=== PATIENT | male | born 1990 | race Caucasian/White ===

== ENCOUNTER 2022-08-21 09:38 | Inpatient (IN) | payer OTHER ==
[~2022-08-21] VITALS: Ht 180.3 cm; Wt 143.0 kg
--- NOTE | 2022-08-21 09:54 | NUR ---
DR CHAUHAN AT BEDSIDE FOR EVAL
--- NOTE | 2022-08-21 10:00 | NUR ---
RAD CALLED FOR XRAY
--- NOTE | 2022-08-21 10:13 | NUR ---
EMT AT BED SIDE FOR EKG
--- NOTE | 2022-08-21 10:17 | NUR ---
L HAND 20G ASSEMBLER FILTERS FLUSH AND S/L
--- NOTE | 2022-08-21 10:18 | NUR ---
COVID SWAB COLLECTED AND SENT TO LAB
--- NOTE | 2022-08-21 10:21 | NUR ---
LONG WINDER TENDER AT BEDSIDE FOR XRAY
[2022-08-21] MEDS ORDERED: CLIN300C12 PO (10:31)
[2022-08-21 10:37] LABS: BASOPHILS % (AUTO) 0.2 % (0.0-2.0); EOSINOPHILS % (AUTO) 1.5 % (0.0-6.0); HEMATOCRIT 42 % (39-51); LYMPHOCYTES # (AUTO) 2.6 K/uL (0.8-4.8); LYMPHOCYTES % (AUTO) 15.6 % (20.0-44.0); MEAN CORPUSCULAR HGB CONC 33 g/dl (31.0-36.0); MEAN CORPUSCULAR VOLUME 92 fL (80-96); MONOCYTES # (AUTO) 0.7 K/uL (0.1-1.30); MONOCYTES % (AUTO) 4.3 % (2.0-12.0); NEUTROPHILS # (AUTO) 12.8 K/uL (1.8-8.9); NEUTROPHILS % (AUTO) 78.4 % (43.0-81.0); PLATELET COUNT (AUTO) 305 K/uL (150-450); RED BLOOD CELL COUNT(AUTO) 4.63 MIL/uL (4.5-6.0); WHITE BLOOD COUNT (AUTO) 16.4 K/uL (4.3-11.0)
[2022-08-21 10:47] LABS: CALCIUM, SERUM 8.7 mg/dL (8.5-10.1); POTASSIUM 3.9 mmol/L (3.5-5.1)
[2022-08-21] MEDS ORDERED: MORPHINE SULFATE INJ 2 MG/ML DISP.SYRIN IV ONE (11:00)
[2022-08-21] MEDS ORDERED: ONDANSETRON HCL/PF 4 MG/2 ML VIAL IV ONE (11:00)
[2022-08-21] MEDS ORDERED: ONDANSETRON HCL/PF 4 MG/2 ML VIAL ONE (11:06)
[2022-08-21] MEDS ORDERED: MORPHINE SULFATE INJ 2 MG/ML DISP.SYRIN ONE ×2 (11:06→11:19)
--- NOTE | 2022-08-21 12:07 | NUR ---
DR. CHAUHAN CONSULTED WITH DR. CARDENAS
[2022-08-21] MEDS ORDERED: MAG HYDROX/AL HYDROX/SIMETH 30 ML UDC PO PRN (14:00)
[2022-08-21] MEDS ORDERED: MORPHINE SULFATE INJ 2 MG/ML DISP.SYRIN IV PRN ×2 (14:00→19:00)
[2022-08-21] MEDS ORDERED: Z GUARD REMEDY 4 OZ OINT TP PRN (14:00)
[2022-08-21] MEDS ORDERED: MAGNESIUM HYDROXIDE 30 ML UDC PO PRN (14:00)
[2022-08-21] MEDS ORDERED: ACETAMINOPHEN 325 MG TABLET PO PRN (14:00)
[2022-08-21] MEDS ORDERED: ONDANSETRON HCL/PF 4 MG/2 ML VIAL IVP PRN (14:00)
--- NOTE | 2022-08-21 14:00 | NUR ---
room [id number]
--- NOTE | 2022-08-21 14:25 | NUR ---
León montaño in [facility] - 08/21/22 at 1426 by KAITLIN REPORT GIVEN TO GUME SWEENEY SOPHY
--- NOTE | 2022-08-21 14:26 | NUR ---
REPORT GIVEN TO GUME FOR SOPHY
--- NOTE | 2022-08-21 14:29 | NUR ---
PT MOVED TO 3W VIA [facility]
--- NOTE | 2022-08-21 14:45 | NUR ---
MS RN NOTE ADMITTED IS A 31 YEAR OLD MALE, TRANSPORTED VIA GURNEY FROM ER ACCOMPANIED BY NURSE. PATIENT TRANSFERRED TO BED AND COMFORT MEASURES PROVIDED. PATIENT IS ALERT AND ORIENTED X4. PATIENT IS ON ROOM AIR WITH NO APPARENT SIGNS OF RESPIRATORY DISTRESS. WITH IV ACCESS ON THE LEFT HAND G20 ON SALINE LOCK, PATENT AND INTACT. WITH CAST ON THE LEFT LOWER EXTREMITY AND WRAPPED WITH ELASTIC BANDAGE, DRY AND INTACT WITH NO CIRCULATORY, SENSORY OR MOTOR DEFICIT NOTED ON THE LEFT TOES. COMFORT MEASURES PROVIDED. HOSPITALIST RAJNI AWARE OF PATIENT ADMISSION. PATIENT HEALTH TEACHING DONE REGARDING ADMISSION AND ADMISSION ORDERS. VERBALIZED UNDERSTANDING AND APPRECIATION. SAFETY MEASURES ENSURED WITH BED ON LOWEST LOCKED POSITION, SIDERAILS RAISED AND CALL LIGHT WITHIN REACH AT ALL TIMES. IN STABLE CONDITION. WILL CONTINUE WITH PLAN OF CARE.
[2022-08-21] MEDS: HYDROCODONE/APAP 5/325MG TABLET PO PRN ×2 (15:10→23:00)
[2022-08-21 15:48] VITALS: BP 161/94
--- NOTE | 2022-08-21 18:35 | NUR ---
MS RN CLOSING NOTE MS RN NOTE PATIENT IN BED, WITH FAMILY AT BEDSIDE. PATIENT IS ALERT AND ORIENTED X4. PATIENT IS ON ROOM AIR WITH NO APPARENT SIGNS OF RESPIRATORY DISTRESS OR SOB. WITH IV ACCESS ON THE LEFT HAND G20 ON SALINE LOCK, PATENT AND INTACT. WITH CAST ON THE LEFT LOWER EXTREMITY AND WRAPPED WITH ELASTIC BANDAGE, DRY AND INTACT WITH NO CIRCULATORY, SENSORY OR MOTOR DEFICIT NOTED ON THE LEFT TOES. COMFORT MEASURES PROVIDED. SAFETY MEASURES ENSURED WITH BED IN LOWEST LOCKED POSITION, SIDERAILS RAISED X2 AND CALL LIGHT WITHIN REACH. ALL NEEDS MET AT THIS TIME. WILL ENDSORSE SOPHY TO NIGHTSHIFT NURSE
--- NOTE | 2022-08-21 18:37 | NUR ---
RN NOTE PT COMPLAINING OF PERSISTENT PAIN REGARDLESS OF TAKING NORCO 5-325 AND 1MG MORPHINE. CONTACTED JOB LITHOGRAPHER WHO CHANGED DOSE OF MORPHINE TO 2MG PRN Q4HRS AND DILAUDID 1MG IVPX1. PATIENT HAS BEEN PUT ON CONTINUOUS PULSE OC AND TELE. WILL GIVE MEDS AND CONTINUE TO MONITOR.
[2022-08-21] MEDS ORDERED: HYDROMORPHONE 1 MG/1 ML DISP.SYRIN IV ONE (19:00)
--- NOTE | 2022-08-21 19:30 | NUR ---
CONTINUOUS TOWEL ROLLER OPENING NOTES - RECEIVED PATIENT AWAKE, BED IN SEMI-ODONNELL'S. FEMALE VISITOR ON BEDSIDE. A/O X4. BREATHING EVEN AND NON-LABORED ON ROOM AIR. NOT IN APPARENT DISTRESS. C/O SHARP LEFT LOWER LEG PAIN 10/10. ON TELE MONITOR READING SINUS RHYTHM AT 85 BPM. HAS LEFT HAND IV ACCESS #20G AND SALINE LOCKED. CANULA BENT AND ALMOST PULLED OUT. LEFT LOWER LEG OFFLOADED WITH PILLOW, FLORA BANDAGE DRY AND INTACT. SAFETY PRECAUTIONS IN PLACE: BED LOCKED AND IN LOW POSITION, SIDE RAILS UP X2, CALL LIGHT WITHIN REACH. WILL CONTINUE PLAN OF CARE.
[2022-08-21 20:00] VITALS: BP 156/99
--- NOTE | 2022-08-21 20:25 | NUR ---
RE-INSERTED IV ACCESS TO RIGHT HAND #20G. ADMINISTERED DILAUDID 1MG X1, TOLERATED WELL. WILL CONTINUE TO MONITOR.
--- NOTE | 2022-08-21 21:27 | NUR ---
REPORTED TO HOSPITALIST BENNETT BURNS NP THAT PATIENT'S RESPONSE TO DILAUDID 1MG IS MORE EFFECTIVE THAN MORPHINE. VERBALIZED HE WILL PUT IN THE ORDER.
[2022-08-21] MEDS ORDERED: HYDROMORPHONE 1 MG/1 ML DISP.SYRIN IV PRN (22:00)
[2022-08-21] MEDS: IV D5/0.45 NACL 1,000 ML IV PRN (22:46)
[2022-08-22] VITALS (13 sets, daily range): BP systolic 136–180; BP diastolic 74–115
--- NOTE | 2022-08-22 01:17 | NUR ---
BP 162/99 AND 167/106. LEFT LOWER LEG PAIN 04/20. PER PATIENT, DILAUDID 1MG HELPED FOR AT LEAST AN HOUR COMPARED TO 0.5 MG. NOTIFIED HOSPITALIST, AWAITING FOR RESPONSE. Addendum: 08/22/22 at 0139 by January NICK HOROWITZ ERON BURNS ORDERED TO CHANGE DILAUDID TO 1MG IV Q6H PRN. FOR NOW, GIVE DILAUDID 0.5 MG IV ONCE. NOTED AND CARRIED OUT.
[2022-08-22] MEDS ORDERED: HYDROMORPHONE INJ 2 MG/ML DISP.SYRIN IV PRN (02:00)
[2022-08-22] MEDS ORDERED: HYDROMORPHONE 1 MG/1 ML DISP.SYRIN IV ONE (02:00)
[2022-08-22] MEDS: HYDROCODONE/APAP 5/325MG TABLET PO PRN ×2 (03:33→21:55)
[2022-08-22 05:55] LABS: BASOPHILS % (AUTO) 0.3 % (0.0-2.0); HEMATOCRIT 40 % (39-51); HEMOGLOBIN 13.5 g/dL (13.5-17.5); LYMPHOCYTES # (AUTO) 3.2 K/uL (0.8-4.8); LYMPHOCYTES % (AUTO) 24.6 % (20.0-44.0); MEAN CORPUSCULAR HGB CONC 34 g/dl (31.0-36.0); MEAN CORPUSCULAR VOLUME 91 fL (80-96); MONOCYTES # (AUTO) 1.2 K/uL (0.1-1.30); MONOCYTES % (AUTO) 9.1 % (2.0-12.0); NEUTROPHILS # (AUTO) 8.5 K/uL (1.8-8.9); PLATELET COUNT (AUTO) 290 K/uL (150-450); RED BLOOD CELL COUNT(AUTO) 4.37 MIL/uL (4.5-6.0)
[2022-08-22 06:16] LABS: CALCIUM, SERUM 8.7 mg/dL (8.5-10.1); MAGNESIUM 1.9 mg/dL (1.8-2.4); PHOSPHORUS 3.9 mg/dL (2.5-4.9); POTASSIUM 3.6 mmol/L (3.5-5.1)
[2022-08-22 06:28] LABS: THYROID STIMULATING HORMONE 1.502 uIU/mL (0.358-3.74)
--- NOTE | 2022-08-22 07:00 | NUR ---
OIL WELL DIRECTIONAL SURVEYOR CLOSING NOTES - PATIENT IN BED AWAKE, ABLE TO VERBALIZED NEEDS. NOT IN RESPIRATORY OR CARDIAC DISTRESS. AFEBRILE. PER PATIENT, PAIN IMPROVEMENT IS VERY MINIMAL. ON TELE MONITOR READING SINUS RHYTHM AT 80 BPM. HAS RIGHT HAND IV ACCESS #20G WITH D5 1/2NS RUNNING AT 75 ML/HR. INTACT, PATENT AND FLUSHING. ALL DUE MEDS GIVEN AND NEEDS ATTENDED. DISCUSSED PLAN OF CARE WITH PATIENT, VERBALIZED UNDERSTANDING. SAFETY PRECAUTIONS MAINTAINED. WILL ENDORSE TO NEXT SHIFT FOR CONTINUITY OF CARE.
--- NOTE | 2022-08-22 07:05 | NUR ---
SHADER AND TONER OPENING NOTES: RECEIVED PATIENT IN BED, AWAKE, ALERT AND ORIENTED X 4 AND ABLE TO MAKE NEEDS KNOWN. NO SOB OR CARDIAC DISTRESS NOTED, ON PAIN MANAGEMENT ORDERED. IV ACCESS ON R HAND GAUGE 20, PATENT, INTACT AND INFUSING D5 1/2 @75ML/HR. NOTED L LOWER LEG DRESSING PATENT AND INTACT AND KEPT IMMOBILIZED. SAFETY MEASURES MAINTAINED: BED LOCKED AND IN LOWEST POSITION. SIDE RAILS UP X 2. CALL LIGHT IN EASY REACH FOR HELP. WILL MONITOR PT ACCORDINGLY.
--- NOTE | 2022-08-22 07:06 | NUR ---
RN NOTES: ON ARMY MANAGER WITH CURRENT READING SINUS RHYTHM AT 78BPM
[2022-08-22] MEDS: PANTOPRAZOLE 40 MG VIAL IV SCH (08:39)
[2022-08-22] MEDS ORDERED: FENTANYL PF 100MCG/2ML AMPUL ONE ×3 (12:32→15:57)
--- NOTE | 2022-08-22 12:32 | NUR ---
RN NOTES: PATIENT IS ON 10/10 PAIN, FIRE CHIEF ALCON ADJUSTED DILAUDID 1MG IV ORDER TO Q5HRS. ORDERS NOTED AND CARRIED OUT.
[2022-08-22] MEDS ORDERED: MIDAZOLAM HCL 2 MG/2ML VIAL ONE (12:33)
[2022-08-22] MEDS ORDERED: ROCURONIUM BROMIDE 50 MG/5 ML ONE (12:33)
[2022-08-22] MEDS: HYDROMORPHONE 1 MG/1 ML DISP.SYRIN IV PRN ×2 (12:36→20:49)
[2022-08-22] MEDS ORDERED: HYDROGEN PEROXIDE 480 ML BOTTLE ONE (13:40)
[2022-08-22] MEDS ORDERED: BUPIVACAINE 0.5 % PF 150 MG/30 ML VIAL ONE (15:01)
[2022-08-22] MEDS ORDERED: ANESTHESIA TRAY IN PYXIS 1 EA TRAY MC ONE (16:19)
--- NOTE | 2022-08-22 16:50 | NUR ---
RN NOTES: S/P LEFT TIBIA ORIF. PT FROM SURGERY WAS TRANSPORTED VIA BED BY CARLOS MANUEL VARGAS AND CARLOS MANUEL SIMON. PT A/O X 4 AND SLEEPY BUT EASY TO AWAKEN WITH STIMULI. NO DISCOMFORT OF NOW. VS TAKEN 98.1,TEMP 102, O2 SAT 95% ON RA,RR 19. RECEIVED REPORT FROM CARLOS MANUEL VARGAS, TO RESUME DIET (REGULAR DIET), LEFT LEG NOTED WITH FLORA WRAP AND RIGHT LEG WITH SCD PUMP. ANCEF IV 1ST DOSE GIVEN. WEIGHT BEARING NWB ON LLE. PAIN MANAGEMENT ORDERED.SAFETY MEASURES MAINTAINED: BED LOCKED AND IN LOWEST POSITION, LOCKED. SIDE RAILS UP X2. WILL MONITOR ACCORDINGLY.
[2022-08-22 17:07] LABS: HEMOGLOBIN 13.4 g/dL (13.5-17.5)
[2022-08-22] MEDS ORDERED: HYDROCODONE/APAP 5/325MG TABLET PO PRN (17:30)
--- NOTE | 2022-08-22 17:50 | NUR ---
RN NOTES: PHARMACIST CALLED AND SAYING TO WATCH OUT FOR ANY ALLERGIC REACTION, PT HAD ANCEF 1GRAM IV IN SURGERY AND NO REPORTED ALLERGIC REACTION FROM RN. WILL ENDORSED TO RN FORENSIC RN TO WATCH ANY ALLERGIC REACTION WHILE INFUSING ANCEF IV ON 2100.
[2022-08-22] MEDS: IV D5/0.45 NACL 1,000 ML IV PRN (18:02)
--- NOTE | 2022-08-22 18:49 | NUR ---
CERAMICS ENGINEER CLOSING NOTES: RECEIVED PATIENT IN BED, AWAKE, ALERT AND ORIENTED X 4 AND ABLE TO MAKE NEEDS KNOWN. NO SOB OR CARDIAC DISTRESS NOTED,S/P LEFT TIBIA ORIF, ON PAIN MANAGEMENT ORDERED. IV ACCESS ON R HAND GAUGE 20, PATENT, INTACT AND INFUSING D5 1/2 @75ML/HR. NOTED L LOWER LEG SURGICAL DRESSING WITH FLORA WRAP PATENT AND INTACT NO UNUSUAL DISCHARGE. ON RIGHT LEG NOTED WITH SCD PUMP. SAFETY MEASURES MAINTAINED: BED LOCKED AND IN LOWEST POSITION. SIDE RAILS UP X 2. CALL LIGHT IN EASY REACH FOR HELP. WILL MONITOR PT ACCORDINGLY.ENDORSED TO DOWEL INSERTING MACHINE OPERATOR RN FOR CONTINUITY OF CARE.
--- NOTE | 2022-08-22 19:30 | NUR ---
ENVIRONMENTAL SERVICES DIRECTOR OPENING NOTES - RECEIVED PATIENT AWAKE IN HIGH ODONNELL'S. ON BEDSIDE. A/O X4. S/P LEFT TIBIA ORIF. BREATHING EVEN AND NON-LABORED ON ROOM AIR. NOT IN APPARENT DISTRESS. VERBALIZED TIGHT LEG PAIN 01/18, OFFLOADED AND ICE PACK PLACED OVER FLORA BANDAGE. ON TELE MONITOR READING SINUS TACHYCARDIA AT 118 BPM. HAS RIGHT HAND IV ACCESS #20G WITH D5 1/2NS RUNNING AT 75 ML/HR. SAFETY PRECAUTIONS IN PLACE: BED LOCKED AND IN LOW POSITION, SIDE RAILS UP X2, CALL LIGHT WITHIN REACH. WILL CONTINUE PLAN OF CARE.
[2022-08-22] MEDS: ANCEF 1 GM/50 ML D5W IV SCH ×2 (20:49)
[2022-08-22] MEDS: ENOXAPARIN SODIUM 40 MG/0.4 ML DISP.SYRIN SQ SCH (20:50)
--- NOTE | 2022-08-22 21:00 | NUR ---
PATIENT C/O 10/10 PAIN ON HIS LEFT LOWER EXTREMITY. ADMINISTERED PRN DILAUDID 1MG, TOLERATED WELL.
--- NOTE | 2022-08-22 21:51 | NUR ---
SPOKE W/ TIERNEY FR CARDINAL PX REGARDING DUPLICATE ORDERS OF NORCO 5-325 1 TAB AND NORCO 5-325 2 TABS. I ALREADY REJECTED THE DUPLICATE ORDERS TWICE BUT THEY ARE STILL ACTIVE AFTER PX REVIEW. TIERNEY SAID HE WILL D/C THE NEW ORDERS.
--- NOTE | 2022-08-22 22:10 | NUR ---
PATIENT VERBALIZED THAT ANESTHESIA IS WEARING OFF AND HE IS FEELING MORE PAIN NOW. GAVE PRN NORCO 5-325 X2 TABS PO.
[2022-08-23] VITALS: BP 128/87
[2022-08-23] MEDS: HYDROCODONE/APAP 5/325MG TABLET PO PRN ×5 (01:21→22:43)
[2022-08-23] MEDS: HYDROMORPHONE 1 MG/1 ML DISP.SYRIN IV PRN ×4 (02:25→19:56)
[2022-08-23 03:46] VITALS: BP 128/87
[2022-08-23 04:00] VITALS: BP 136/93
[2022-08-23] MEDS: ANCEF 1 GM/50 ML D5W IV SCH ×2 (04:10)
--- NOTE | 2022-08-23 06:05 | NUR ---
PATIENT C/O THROBBING LEFT LOWER EXTREMITY PAIN 05/20. ADMINISTERED PRN NORCO 5-325 MG X2 TABS. TOTAL OF 2275 MG APAP GIVEN FROM 08/22/22 0600 TO 08/23/22 0600.
[2022-08-23 06:46] LABS: BASOPHILS % (AUTO) 0.1 % (0.0-2.0); HEMATOCRIT 38 % (39-51); HEMOGLOBIN 13.1 g/dL (13.5-17.5); LYMPHOCYTES # (AUTO) 2.3 K/uL (0.8-4.8); MEAN CORPUSCULAR HGB CONC 34 g/dl (31.0-36.0); MEAN CORPUSCULAR VOLUME 91 fL (80-96); MONOCYTES # (AUTO) 1.7 K/uL (0.1-1.30); MONOCYTES % (AUTO) 8.3 % (2.0-12.0); NEUTROPHILS # (AUTO) 16.9 K/uL (1.8-8.9); NEUTROPHILS % (AUTO) 80.6 % (43.0-81.0); PLATELET COUNT (AUTO) 310 K/uL (150-450); RED BLOOD CELL COUNT(AUTO) 4.21 MIL/uL (4.5-6.0)
--- NOTE | 2022-08-23 06:48 | NUR ---
MEDICATION RECONCILIATION TECHNICIAN CLOSING NOTES - PATIENT IN BED, UNABLE TO SLEEP THROUGHOUT THE NIGHT D/T LEFT LEG PAIN. PAIN MANAGED PER MD ORDERS. NOT IN RESPIRATORY OR CARDIAC DISTRESS. AFEBRILE. ON TELE MONITOR READING SINUS RHYTHM AT 96 BPM. RIGHT HAND IV ACCESS #20G INTACT, PATENT AND FLUSHING. ALL DUE MEDS GIVEN AND NEEDS ATTENDED. SURGICAL DRESSING C/D/I. SAFETY PRECAUTIONS MAINTAINED. WILL ENDORSE TO NEXT SHIFT FOR CONTINUITY OF CARE.
--- NOTE | 2022-08-23 07:00 | NUR ---
CASH TELLER OPENING NOTES: RECEIVED PATIENT IN BED, ASLEEP EASILY AROUSED WITH STIMULI, ALERT AND ORIENTED X 4 AND ABLE TO MAKE NEEDS KNOWN. NO SOB OR CARDIAC DISTRESS NOTED,S/P LEFT TIBIA ORIF, ON PAIN MANAGEMENT ORDERED. IV ACCESS ON R HAND GAUGE 20, PATENT, INTACT AND INFUSING D5 1/2 @75ML/HR. NOTED L LOWER LEG SURGICAL DRESSING WITH FLORA WRAP PATENT AND INTACT NO UNUSUAL DISCHARGE. ON RIGHT LEG NOTED WITH SCD PUMP. SAFETY MEASURES MAINTAINED: BED LOCKED AND IN LOWEST POSITION. SIDE RAILS UP X 2. CALL LIGHT IN EASY REACH FOR HELP. WILL MONITOR PT ACCORDINGLY.
[2022-08-23 07:29] LABS: CALCIUM, SERUM 9.2 mg/dL (8.5-10.1); MAGNESIUM 2.2 mg/dL (1.8-2.4); PHOSPHORUS 3.1 mg/dL (2.5-4.9)
[2022-08-23] MEDS: PANTOPRAZOLE 40 MG VIAL IV SCH (08:08)
[2022-08-23 08:32] VITALS: BP 125/81
[2022-08-23] MEDS: IV D5/0.45 NACL 1,000 ML IV PRN ×2 (10:23→22:37)
[2022-08-23 16:14] VITALS: BP 135/87
--- NOTE | 2022-08-23 19:00 | NUR ---
GENERATOR TECHNICIAN CLOSING NOTES: RECEIVED PATIENT IN BED, AWAKE, ALERT AND ORIENTED X 4 AND ABLE TO MAKE NEEDS KNOWN. NO SOB OR CARDIAC DISTRESS NOTED,S/P LEFT TIBIA ORIF, ON PAIN MANAGEMENT ORDERED. IV ACCESS ON R HAND GAUGE 20, PATENT, INTACT AND INFUSING D5 1/2 @75ML/HR. NOTED L LOWER LEG SURGICAL DRESSING WITH FLORA WRAP PATENT AND INTACT NO UNUSUAL DISCHARGE. ON RIGHT LEG NOTED WITH SCD PUMP. SAFETY MEASURES MAINTAINED: BED LOCKED AND IN LOWEST POSITION. SIDE RAILS UP X 2. CALL LIGHT IN EASY REACH FOR HELP. WILL MONITOR PT ACCORDINGLY.ENDORSED TO STORE CUSTODIAN RN FOR CONTINUITY OF CARE.
--- NOTE | 2022-08-23 19:30 | NUR ---
TELE CLAY PREPARATION SUPERVISOR INITIAL NOTES RECEIVED REPORT FROM AM NURSE WHILE DOING OUR ROUNDS. SEEN PT IN BED ON SITTING POSITION AND EATING HIS FOOD FROM HOME. WITH IVF OF D51/2 NS AT 75ML/HR INFUSING AT THIS TIME ON HIS RIGHT HAND PATENT AND INTACT. DRESSING ON HIS LEFT LOWER LEG DRY AND INTACT. HE ALSO ON TELE SINUS RHYTHM PER MONITOR. FAMILY AT THE BEDSIDE AT THIS TIME. KEPT HIM WARM AND COMFORTABLE AT ALL TIMES. PLACE CALL LIGHT AT REACH. WILL CONTINUE MONITORING.
--- NOTE | 2022-08-23 19:56 | NUR ---
TELE PHARMACY INFORMATICIST NOTES PT COMPLAINT OF PAIN , 03/20 , PT STATED STARTED THE PAIN. VITAL SIGNS FF: BP 161/84, PULSE 91 RESP 20 AND TEMP 98.6. DILAUDID 1 MG ADMINISTERED BY ANEL/RN ADALGISA IVP ORDERED. WILL RE-ASSESS LATER , CONTINUE MONITORING. STILL AT THE BEDSIDE.
[2022-08-23 20:00] VITALS: BP 161/84
[2022-08-23] MEDS: ENOXAPARIN SODIUM 40 MG/0.4 ML DISP.SYRIN SQ SCH (21:07)
--- NOTE | 2022-08-23 22:43 | NUR ---
TELE PUBLIC STENOGRAPHER NOTES 2 NORCO TABLET GIVEN ORDERED PER PT REQUESTED FOR HIS PAIN 5/10 AND ICE PACK ALSO APPLIED TO AFFECTED AREA. WILL CONTINUE MONITORING. PLACE CALL LIGHT AT REACH.
[2022-08-24] VITALS: BP 148/98
[2022-08-24] MEDS: HYDROMORPHONE 1 MG/1 ML DISP.SYRIN IV PRN ×3 (02:15→13:20)
[2022-08-24 06:14] LABS: BASOPHILS % (AUTO) 0.3 % (0.0-2.0); EOSINOPHILS % (AUTO) 1.6 % (0.0-6.0); HEMATOCRIT 38 % (39-51); HEMOGLOBIN 12.4 g/dL (13.5-17.5); LYMPHOCYTES # (AUTO) 4.6 K/uL (0.8-4.8); LYMPHOCYTES % (AUTO) 29.9 % (20.0-44.0); MEAN CORPUSCULAR HGB CONC 33 g/dl (31.0-36.0); MEAN CORPUSCULAR VOLUME 92 fL (80-96); MONOCYTES # (AUTO) 1.1 K/uL (0.1-1.30); MONOCYTES % (AUTO) 7.4 % (2.0-12.0); NEUTROPHILS # (AUTO) 9.4 K/uL (1.8-8.9); NEUTROPHILS % (AUTO) 60.8 % (43.0-81.0); PLATELET COUNT (AUTO) 320 K/uL (150-450); RED BLOOD CELL COUNT(AUTO) 4.08 MIL/uL (4.5-6.0); WHITE BLOOD COUNT (AUTO) 15.5 K/uL (4.3-11.0)
[2022-08-24 06:19] LABS: CALCIUM, SERUM 8.8 mg/dL (8.5-10.1); CREATININE 0.8 mg/dL (0.6-1.3); MAGNESIUM 2.2 mg/dL (1.8-2.4); PHOSPHORUS 3.5 mg/dL (2.5-4.9); POTASSIUM 3.7 mmol/L (3.5-5.1)
[2022-08-24] MEDS: HYDROCODONE/APAP 5/325MG TABLET PO PRN ×2 (06:43→10:43)
--- NOTE | 2022-08-24 06:55 | NUR ---
TELE LOSS PREVENTION MANAGER CLOSING NOTES PT CALLED AND COMPLAINING OF PAIN AT THIS TIME. NORCO TABLET 5 MG GIVEN ORDERED AND ICE PACK ALSO APPLIED TO AFFECTED AREA. IVF D51/2 NS AT 75ML/HR INFUSING AT THIS TIME. TELE SINUS RHYTHM HEART RATE 91 PER MONITOR. KEPT HIM WARM AND COMFORTABLE AT ALL TIMES. WILL ENDORSE TO AM NURSE FOR CONTINUITY OF CARE. PLACE CALL LIGHT AT REACH.
--- NOTE | 2022-08-24 07:00 | NUR ---
AS400 OPERATOR OPENING NOTES: RECEIVED PATIENT IN BED, ASLEEP EASILY AROUSED WITH STIMULI, ALERT AND ORIENTED X 4 AND ABLE TO MAKE NEEDS KNOWN. NO SOB OR CARDIAC DISTRESS NOTED,S/P LEFT TIBIA ORIF, ON PAIN MANAGEMENT ORDERED. ON TITLE I TEACHER WITH CURRENT READING OF SINUS RHYTHM @78 BPM. IV ACCESS ON R HAND GAUGE 20, PATENT, INTACT AND INFUSING D5 1/2 @75ML/HR. NOTED L LOWER LEG SURGICAL DRESSING WITH FLORA WRAP PATENT AND INTACT NO UNUSUAL DISCHARGE. ON RIGHT LEG NOTED WITH SCD PUMP. SAFETY MEASURES MAINTAINED: BED LOCKED AND IN LOWEST POSITION. SIDE RAILS UP X 2. CALL LIGHT IN EASY REACH FOR HELP. WILL MONITOR PT ACCORDINGLY.
[2022-08-24] MEDS ORDERED: PANTOPRAZOLE 40 MG TABLET.DR PO SCH (07:30)
[2022-08-24 08:00] VITALS: BP 136/99
[2022-08-24] MEDS ORDERED: Hydrocodone/Apap 5/325MG PO (09:58)
--- NOTE | 2022-08-24 13:54 | NUR ---
PATENTS EXAMINER NOTES: PATIENT DC HOME ACCOMPANIED BY AND SISTER. PT ALERT AND ORIENTED X 4 AND ABLE TO VERBALIZED NEEDS, NO SOB OR CARDIAC DISTRESS NOTED. DENIES PAIN AT THIS TIME. DISCHARGE PACKET GIVEN TO PT AND VERBALIZED UNDERSTANDING, NORCO PRESCRIPTION GIVEN TO PT MADE COPY FOR OUR REFERENCE. NO SKIN ISSUES NOTED, UNOPENED SURGICAL DRESSING, ITS INTACT AND NO UNUSUAL DISCHARGE NOTED. GRAPHIC ARTS INSTRUCTOR HANDED TO MONITOR LUANN JACOBS. ALL BELONGINGS TAKEN WITH THE RESIDENT AND SIGNED THE FORM. CRUTCHES PROVIDED BY PT. IV ACCESS AND IDENTIFICATION BAND REMOVED. PATO Flores HELPED THE PT IN THE LOBBY VIA WHEELCHAIR AND ACCOMPANIED BY FAMILY. PT LEFT THE UNIT STABLE.
== END 2022-08-24 13:36 | disposition home health service (06) | DRG 313 ==
LOC: ER 09:40 → MED 14:33 → TELE 19:13 → MED 08-22 → TELE 08-22 01:00
PROVIDERS: ADMIT Registered Nurse; ATTEND Registered Nurse
PROC: 0QSH06Z Reposition Left Tibia with Intramedullary Internal Fixation Device, Open Approach (ICD-10-PCS; principal; 2022-08-22)
DX: S82.252A Displaced comminuted fracture of shaft of left tibia, initial encounter for closed fracture (principal); E43 Unspecified severe protein-calorie malnutrition; D72.829 Elevated white blood cell count, unspecified; Z68.41 Body mass index [BMI] 40.0-44.9, adult; E66.01 Morbid (severe) obesity due to excess calories; S82.452A Displaced comminuted fracture of shaft of left fibula, initial encounter for closed fracture; W20.8XXA Other cause of strike by thrown, projected or falling object, initial encounter; Z20.822 Contact with and (suspected) exposure to COVID-19; Y93.H2 Activity, gardening and landscaping; Y92.89 Other specified places as the place of occurrence of the external cause; Z88.0 Allergy status to penicillin; I10 Essential (primary) hypertension; F10.90 Alcohol use, unspecified, uncomplicated; Y90.9 Presence of alcohol in blood, level not specified
CPT/HCPCS: 36415; 71045-TC; 73590-TC; 73610-TC; 73630-TC; 73700-TC; 80048-TC; 83735-TC; 84100-TC; 84443-TC; 85025-TC; 85027-TC; 85730-TC; 87081-TC; 94760-TC; 97112-TC; 97116-TC; 97530-TC; C1713; C9113; C9803; G0378; J0330; J0690; J1100; J1170; J1650; J2250; J2270; J2405; J2704; J3010; J3490; J7030; J7060